=== PATIENT | female | born 1990 | race Caucasian/White ===

== ENCOUNTER 2016-10-08 19:15 | Emergency (ER) | payer OTHER ==
[~2016-10-08] VITALS: Ht 154.9 cm; Wt 49.9 kg
[2016-10-08] MEDS ORDERED: ACETAMINOPHEN500 M4 PO (19:28)
[2016-10-08] MEDS ORDERED: WAL-PROFEN200 M1 PO (19:28)
== END 2016-10-08 22:08 | disposition left against medical advice (07) ==
LOC: ED 19:15
DX: Z53.21 Procedure and treatment not carried out due to patient leaving prior to being seen by health care provider (principal)

== ENCOUNTER 2016-10-15 12:08 | Emergency (ER) | payer OTHER ==
[~2016-10-15] VITALS: Ht 154.9 cm; Wt 49.9 kg
[~2016-10-15 12:08] MED LIST: ACETAMINOPHEN500 M4 PO; WAL-PROFEN200 M1 PO
[2016-10-15] MEDS ORDERED: WAL-PROFEN200 M1 PO (13:10)
[2016-10-15] MEDS ORDERED: AMOXICILLIN500 MG PO (13:10)
== END 2016-10-15 13:20 | disposition home or self-care (01) ==
LOC: ED 12:08
DX: K02.9 Dental caries, unspecified (principal); F15.20 Other stimulant dependence, uncomplicated; H91.90 Unspecified hearing loss, unspecified ear; F17.200 Nicotine dependence, unspecified, uncomplicated
CPT/HCPCS: 96372; 99283; J1885